=== PATIENT | female | born 1950 | race Caucasian/White ===

== ENCOUNTER 2020-03-16 15:50 | Outpatient (CLI) | payer MEDICARE, SELFPAY ==
--- NOTE | ~2020-03-16 | CT_ITS ---
EXAMINATION: CT abdomen pelvis w con EXAM DATE: 03/16/2020 17:34 INDICATION: Right lower quadrant pain. Anemia. TECHNIQUE: Spiral CT of the abdomen and pelvis was performed following intravenous injection of 100 m L Omnipaque 350. Axial, coronal and sagittal images were reviewed. The dose-length product (DLP) fo r this examination was 380.57 mGy-cm. The exposure was tailored according to patient size (auto mA e xposure control), and iterative reconstruction (ASIR) was used as additional dose reduction technique . There is no prior study for comparison. FINDINGS: The liver, spleen, adrenal glands and pancreas are unremarkable. Gallbladder is unremarkab le. No biliary obstruction. Portal and splenic veins are patent. Kidneys enhance symmetrically. T here is no hydronephrosis. The uterus is unremarkable. The bladder is unremarkable. There is no retroperitoneal or pelvic lymphadenopathy. There is mild to moderate scattered arteriosclerotic dis ease. The appendix is normal. The stomach and small bowel are unremarkable. There is moderate descending c olonic colonic diverticulosis. There is no adjacent inflammatory change to suggest diverticulitis. No free intraperitoneal gas. The heart is normal in size. There are no pericardial or pleural effu sions. The lung bases are unremarkable. There are no osteoblastic or osteolytic lesions identified. IMPRESSION: 1. Unremarkable CT abdomen pelvis exam. Reviewed, dictated and finalized at location A.
[2020-03-16 17:23] LABS: Estimated Glomerular Filt Rate > 60
== END 2020-03-16 15:51 | disposition home or self-care (01) ==
PROVIDERS: PCP Internal Medicine
DX: D50.9 Iron deficiency anemia, unspecified (principal)
CPT/HCPCS: 36415; 74177; Q9967

== ENCOUNTER 2020-04-29 05:23 | Outpatient (CLI) | payer MEDICARE, SELFPAY ==
--- NOTE | 2020-04-29 06:32 | SUR.OPER ---
Patient brought to GI Lab. Instructions for patient undergoing Capsule Endoscopy reviewed with patient. Consent form signed. Sensor array applied to patient's abdomen and connected to recorded. Patient swallowed capsule with 8 ozs of water infused with Simethicone. Patient instructed they may have clear liquids at 0820 this AM and eat or drink at 1020 this AM. Patient instructed to return to GI Lab at 1500 this afternoon for removal of recording device and to call [phone] or to return to the hospital if any nausea and vomiting or abdominal pain is experienced.
--- NOTE | 2020-04-29 11:12 | SUR.OPER ---
PATIENT CALLED GI LAB AT 1020 AM AND STATED THAT PILL IS IN TOILET AND STILL FLASHING. INSTRUCTED PATIENT TO FLUSH CAPSULE AND RETURN TO [facility] AND CALL WHEN IN [address]. EQUIPMENT REMOVED FROM PATIENT. PATIENT ASKED WHEN SHE WOULD KNOW THE FINDING, SHE WAS DIRECTED TO CALL DR. DOMINGUEZ'S OFFICE IF SHE HAS NOT HEARD ANYTHING AFTER 2 WEEKS.
== END 2020-04-29 05:24 | disposition home or self-care (01) ==
PROVIDERS: PCP Internal Medicine; Visit Provider Internal Medicine Gastroenterology
PROC: 0DJ07ZZ Inspection of Upper Intestinal Tract, Via Natural or Artificial Opening (ICD-10-PCS; CPT 91110; principal; 2020-04-29 07:00)
DX: D50.9 Iron deficiency anemia, unspecified (principal)
CPT/HCPCS: 91110

== ENCOUNTER → 2021-08-02 14:15 | Outpatient (CLI) | payer MEDICARE, SELFPAY ==
--- NOTE | ~2021-08-02 | CT_ITS ---
EXAMINATION: CT brain wo con DATE: 08/02/2021 14:30 INDICATION: Dizziness, paresis of extremities, essential tremors. TECHNIQUE: Computed tomography (CT) of the head was performed without intravenous contrast. The mA wa s adjusted according to patient size. Iterative reconstruction technique was employed. Exam dose: 59 9.57 mGy-cm total exam DLP. COMPARISON: None FINDINGS: There is bilateral cerebral volume loss involving preferentially the frontal lobes. No intracranial mass lesion or hemorrhage or cerebrovascular accident is detected. No midline shift o r mass effect effect. Normal ventricular size. There are bilateral carotid siphon internal carotid artery calcifications. There is nonspecific dimin ished attenuation of the cerebral white matter, likely due to chronic small vessel ischemic changes. No subdural or epidural hematoma is detected. Up to 3.2 cm polypoid soft tissue density is noted at the lower aspect right maxillary sinus. No skull fracture is detected. IMPRESSION: Cerebral atherosclerosis and chronic small vessel ischemic changes of cerebral white mat ter Bilateral cerebral volume loss preferentially involving the frontal lobes Reviewed, dictated and finalized at Location A. Reviewed, dictated and finalized at location A. IMPRESSION: Cerebral atherosclerosis and chronic small vessel ischemic changes of cerebral white matter Bilateral cerebral volume loss preferentially involving the frontal lobes
== END ==
PROVIDERS: PCP Internal Medicine; Visit Provider Internal Medicine
DX: M62.81 Muscle weakness (generalized) (principal); I67.2 Cerebral atherosclerosis
CPT/HCPCS: 70450

== ENCOUNTER 2023-02-21 00:22 | Day surgery (SDC) | payer MEDICARE, SELFPAY ==
[2023-02-09 14:32] VITALS: BMI 25.5
[2023-02-21 07:44] VITALS: BP 115/58; PULSE 82; RESP 20; TEMP 36.4; O2SAT 99
[2023-02-21] MEDS: LACTATED RINGERS 1,000 ML 150 ML IV CONT (07:56)
--- NOTE | 2023-02-21 07:59 | WPDHPUPDATE1 ---
History and Physical Update Update Date/Time: 02/21/23 07:59 History and Physical has been reviewed, including an updated exam of the patient. There are NO changes in the patient's condition. Risks, benefits, and alternatives have been discussed and questions answered. Patient agrees to proceed with procedure.
--- NOTE | 2023-02-21 08:37 | WPDANESEPPF ---
Anes - Initial Pre Proc Eval Procedure: Operation Date: 02/21/23 09:00 Proposed Procedures p Esophagogastroduodenoscopy - Iraj Ayoub MD Date/Time: 02/21/23 08:37 Surgeon: Iraj Ayoub MD Pre Op Diagnosis: GERD, MARYCHUY Patient Data Age: 72 Gender: F Height: 1.6 m Weight: 65.6 kg Last Vital Signs Temp 97.5 F L 02/21/23 07:44 Pulse 82 02/21/23 07:44 Resp 20 02/21/23 07:44 BP 115/58 L 02/21/23 07:44 Pulse Ox 99 02/21/23 07:44 O2 Del Method Room Air 02/21/23 07:44 Allergies Allergy/AdvReac Type Severity Reaction Status Date / Time milnacipran [From Savella] Allergy Intermediate Hallucinati Verified 02/21/23 07:42 ng niacin Allergy Intermediate facial Verified 02/21/23 07:42 [From Niaspan reaction Extended-Release] Home Medications Medication Instructions Recorded Confirmed Type alendronate 70 mg tablet 70 mg PO WEEKLY 02/06/23 02/09/23 History aspirin 81 mg tablet,delayed 81 mg PO DAILY 02/06/23 02/09/23 History release (Adult Aspirin Regimen) diltiazem HCl 120 mg capsule,24 120 mg PO DAILY 02/06/23 02/09/23 History hr,extended release gabapentin 300 mg capsule 300 mg PO TID 02/06/23 02/09/23 History loteprednol etabonate 0.38 % eye 1 drp EACH EYE BID PRN Dry Eye(S) 02/06/23 02/09/23 History gel drops (Lotemax SM) pantoprazole 40 mg tablet,delayed 40 mg PO QAM 02/06/23 02/09/23 History release sertraline 50 mg tablet 100 mg PO DAILY 02/06/23 02/09/23 History temazepam 15 mg capsule 15 mg PO QHS PRN Insomnia 02/06/23 02/09/23 History Good Sense Nasal [place] 1 spray EACH NARE DAILY PRN 02/09/23 02/09/23 History Congestion cholecalciferol (vitamin D3) 125 10,000 unit PO DAILY 02/09/23 02/09/23 History mcg (5,000 unit) tablet (Vitamin D3) cyanocobalamin (vitamin B-12) 2,000 mcg PO DAILY 02/09/23 02/09/23 History 1,000 mcg tablet (Vitamin B-12) hydrocodone 7.5 mg-acetaminophen 1 tablet PO Q6H PRN Pain 02/09/23 02/09/23 History 325 mg tablet isosorbide mononitrate 30 mg 30 mg PO DAILY 02/09/23 02/09/23 History tablet,extended release 24 hr loratadine 10 mg tablet (Allergy 10 mg PO DAILY 02/09/23 02/09/23 History Relief (loratadine)) lorazepam 1 mg tablet 1 mg PO DAILY PRN Anxiety 02/09/23 02/09/23 History magnesium oxide 400 mg PO DAILY 02/09/23 02/09/23 History multivitamin with minerals 1 tablet PO DAILY 02/09/23 02/09/23 History (Hair,Skin and Nails tablet) rosuvastatin 40 mg tablet 40 mg PO DAILY 02/09/23 02/09/23 History simethicone 125 mg tablet 125 mg PO DAILY 02/09/23 02/09/23 History Patient hx anesthesia problems: none Family hx anesthesia problems: none Results Review: All pre-operative results and documents have been reviewed as part of the pre-operative evaluation. [facility] Past Medical History Medical History (Updated 02/06/23 @ 14:56 by Hallie Kirk APRN) Coronary arteriosclerosis Essential hypertension Essential tremor Hx of colonic polyps MARYCHUY (iron deficiency anemia) Sebaceoma Tobacco abuse Surgical History Surgical History (Updated 02/06/23 @ 14:20 by Sydnee Macias MA) History of appendectomy Family History Family History (Updated 02/06/23 @ 14:19 by Sydnee Macias MA) Father Hypertension Cancer Mother Diabetes mellitus Hypertension Social History Social History (Updated 02/06/23 @ 14:20 by Sydnee Macias MA) Smoking packs per day: 1 Smoking cigarettes per day: 20.0 Years smoked: 60 Smoking pack-years: 60.00 Smoking status: Current every day smoker Tobacco type: cigarettes Second hand tobacco smoke exposure: Yes Alcohol intake: current Substance use: never Substance use type: does not use Living arrangements: with family Spiritual care concerns: No Anes - Eval Final PreProcedure Day of Procedure 02/21/23 08:37 Patient weight: normal Heart: regular rate and rhythm Lungs: clear to auscultation Airway: Mallampati scale cla
[2023-02-21 09:01] VITALS: BP 107/61; PULSE 66; RESP 19; O2SAT 100
[2023-02-21 09:11] VITALS: BP 122/71; PULSE 66; RESP 20; O2SAT 99
[2023-02-21 09:21] VITALS: BP 125/70; PULSE 66; RESP 16; O2SAT 100
== END 2023-02-21 09:29 | disposition home or self-care (01) ==
PROVIDERS: PCP Internal Medicine; Visit Provider Internal Medicine Gastroenterology
PROC: 0DJ08ZZ Inspection of Upper Intestinal Tract, Via Natural or Artificial Opening Endoscopic (ICD-10-PCS; CPT 43235; principal; 2023-02-21 09:00)
DX: D50.9 Iron deficiency anemia, unspecified (principal); K21.9 Gastro-esophageal reflux disease without esophagitis; I10 Essential (primary) hypertension; I25.10 Atherosclerotic heart disease of native coronary artery without angina pectoris; G25.0 Essential tremor; F17.210 Nicotine dependence, cigarettes, uncomplicated; Z79.82 Long term (current) use of aspirin
CPT/HCPCS: 43239; 87081; 88305; J7120

== ENCOUNTER 2023-07-27 03:21 | Day surgery (SDC) | payer MEDICARE, SELFPAY ==
[2023-07-13 11:34] VITALS: BMI 25.5
[2023-07-27 11:07] VITALS: BP 163/69; PULSE 82; RESP 16; TEMP 36.7; O2SAT 97
[2023-07-27] MEDS: LACTATED RINGERS 1,000 ML 150 ML IV CONT (11:16)
--- NOTE | 2023-07-27 11:26 | PM.HPGS ---
History of Present Illness History of Present Illness Consent: Risks, benefits, and alternatives have been discussed and questions answered. Patient agrees to proceed with procedure. Chief complaint: Iron Deficiency Anemia Narrative: Mirtha Leavitt is a 72 year old female Referred for colonoscopy. Patient reports her bowel habits are normal. She denies any obvious blood in her stools. She states she had a home stool test that was negative for blood. These results are not available for review. Patient has had anemia for some time felt to be iron deficient. Apparently has been on iron replacement at home with no significant improvement in her hemoglobin. Repeat CBC several months ago revealed microcytic anemia to persists. Patient has a distant history of hyperplastic polyp. I can find results for colonoscopy an EGD 2019 performed to [facility] that were essentially unremarkable. An EGD performed by our service in 2022 was unremarkable. Patient has had previous workup by Dr. Fowler including colonoscopy and small-bowel follow-through that were unremarkable. Patient is not yet seen hematology. Referred today for a colonoscopy. Review of Systems Review of Systems: Review of systems noncontributory. [facility] Past Medical History Medical History (Updated 02/06/23 @ 14:56 by Hallie Kirk, MON[place]) Coronary arteriosclerosis Essential hypertension Essential tremor Hx of colonic polyps MARYCHUY (iron deficiency anemia) Sebaceoma Tobacco abuse Surgical History Surgical History (Updated 02/06/23 @ 14:20 by Sydnee Macias MA) History of appendectomy Family History Family History (Updated 02/06/23 @ 14:19 by Sydnee Macias MA) Father Hypertension Cancer Mother Diabetes mellitus Hypertension Social History Social History (Updated 02/06/23 @ 14:20 by Sydnee Macias MA) Smoking packs per day: 1 Smoking cigarettes per day: 20.0 Years smoked: 58 Smoking pack-years: 58.00 Smoking status: Current every day smoker Tobacco type: cigarettes Second hand tobacco smoke exposure: Yes Alcohol intake: current Alcohol use details: social Substance use: never Substance use type: does not use Living arrangements: with family Spiritual care concerns: No Meds Home Medications and Allergies Home Medications Medication Instructions Recorded Confirmed Type alendronate 70 mg tablet 70 mg PO WEEKLY 02/06/23 07/13/23 History aspirin 81 mg tablet,delayed 81 mg PO DAILY 02/06/23 07/13/23 History release (Adult Aspirin Regimen) diltiazem HCl 120 mg capsule,24 120 mg PO DAILY 02/06/23 07/13/23 History hr,extended release gabapentin 300 mg capsule 300 mg PO TID 02/06/23 07/13/23 History loteprednol etabonate 0.38 % eye 1 drp EACH EYE BID PRN Dry Eye(S) 02/06/23 07/13/23 History gel drops (Lotemax SM) pantoprazole 40 mg tablet,delayed 40 mg PO QAM 02/06/23 07/13/23 History release sertraline 50 mg tablet 100 mg PO DAILY 02/06/23 07/13/23 History temazepam 15 mg capsule 15 mg PO QHS PRN Insomnia 02/06/23 07/13/23 History cholecalciferol (vitamin D3) 125 10,000 unit PO DAILY 02/09/23 07/13/23 History mcg (5,000 unit) tablet (Vitamin D3) cyanocobalamin (vitamin B-12) 1,000 mcg PO DAILY 02/09/23 07/13/23 History 1,000 mcg tablet (Vitamin B-12) isosorbide mononitrate 30 mg 30 mg PO DAILY 02/09/23 07/13/23 History tablet,extended release 24 hr loratadine 10 mg tablet (Allergy 10 mg PO DAILY PRN Allergy Symptoms 02/09/23 07/13/23 History Relief (loratadine)) lorazepam 1 mg tablet 1 mg PO DAILY PRN Anxiety 02/09/23 07/13/23 History magnesium oxide 400 mg PO DAILY 02/09/23 07/13/23 History rosuvastatin 40 mg tablet 40 mg PO DAILY 02/09/23 07/13/23 History biotin 5,000 mcg chewable tablet 5,000 mcg PO DAILY 07/13/23 07/13/23 History ferrous sulfate 325 mg (65 mg 325 mg PO DAILY 07/13/23 07/13/23 History iron) tablet (Iron (ferrous sulfate)) fl
[2023-07-27 11:39] LABS: Basophils Absolute Auto 0.1 K/mm3 (0.0-0.1); Basophils Percent Auto 1.4 % (0.2-1.2); Eosinophils Absolute Auto 0.1 K/mm3 (0-0.3); Eosinophils Percent Auto 1.2 % (0-4.4); Hematocrit 41.9 % (37.0-47.0); Hemoglobin 13.6 g/dL (12.0-15.0); Immature Granulocyte Absolute 0.02 K/mm3 (0.00-0.031); Immature Granulocyte Percent A 0.3 % (0-0.5); Lymphocytes Percent Auto 31.6 % (18.3-44.2); Mean Corpuscular HGB Conc 32.5 g/dl (32-36); Mean Corpuscular Hemoglobin 29.3 pg (26-34); Mean Corpuscular Volume 90.3 fl (80-100); Mean Platelet Volume 9.4 fl (7.4-10.4); Monocytes Absolute Auto 0.6 K/mm3 (0.1-0.6); Neutrophils Absolute Auto 3.8 K/mm3 (1.3-6.7); Neutrophils Percent Auto 56.5 % (45.5-73.1); Platelet Count Result 269 k/mm3 (150-375); Red Blood Count 4.64 M/mm3 (4.2-5.4); White Blood Count 6.6 K/mm3 (4.5-10.0)
--- NOTE | 2023-07-27 12:06 | WPDANESEPPF ---
Anes - Initial Pre Proc Eval Procedure: Operation Date: 07/27/23 12:30 Proposed Procedures p Colonoscopy - Iraj Ayoub MD Date/Time: 07/27/23 12:06 Surgeon: Iraj Ayoub MD Pre Op Diagnosis: Iron Deficiency Anemia Patient Data Age: 72 Gender: F Height: 1.6 m Weight: 64 kg Last Vital Signs Temp 98.1 F 07/27/23 11:07 Pulse 82 07/27/23 11:07 Resp 16 07/27/23 11:07 BP 163/69 H 07/27/23 11:07 Pulse Ox 97 07/27/23 11:07 O2 Del Method Room Air 07/27/23 11:07 Allergies Allergy/AdvReac Type Severity Reaction Status Date / Time milnacipran [From Savella] Allergy Intermediate Hallucinati Verified 07/27/23 11:06 ng niacin Allergy Intermediate facial Verified 07/27/23 11:06 [From Niaspan reaction Extended-Release] Home Medications Medication Instructions Recorded Confirmed Type alendronate 70 mg tablet 70 mg PO WEEKLY 02/06/23 07/13/23 History aspirin 81 mg tablet,delayed 81 mg PO DAILY 02/06/23 07/13/23 History release (Adult Aspirin Regimen) diltiazem HCl 120 mg capsule,24 120 mg PO DAILY 02/06/23 07/13/23 History hr,extended release gabapentin 300 mg capsule 300 mg PO TID 02/06/23 07/13/23 History loteprednol etabonate 0.38 % eye 1 drp EACH EYE BID PRN Dry Eye(S) 02/06/23 07/13/23 History gel drops (Lotemax SM) pantoprazole 40 mg tablet,delayed 40 mg PO QAM 02/06/23 07/13/23 History release sertraline 50 mg tablet 100 mg PO DAILY 02/06/23 07/13/23 History temazepam 15 mg capsule 15 mg PO QHS PRN Insomnia 02/06/23 07/13/23 History cholecalciferol (vitamin D3) 125 10,000 unit PO DAILY 02/09/23 07/13/23 History mcg (5,000 unit) tablet (Vitamin D3) cyanocobalamin (vitamin B-12) 1,000 mcg PO DAILY 02/09/23 07/13/23 History 1,000 mcg tablet (Vitamin B-12) isosorbide mononitrate 30 mg 30 mg PO DAILY 02/09/23 07/13/23 History tablet,extended release 24 hr loratadine 10 mg tablet (Allergy 10 mg PO DAILY PRN Allergy Symptoms 02/09/23 07/13/23 History Relief (loratadine)) lorazepam 1 mg tablet 1 mg PO DAILY PRN Anxiety 02/09/23 07/13/23 History magnesium oxide 400 mg PO DAILY 02/09/23 07/13/23 History rosuvastatin 40 mg tablet 40 mg PO DAILY 02/09/23 07/13/23 History biotin 5,000 mcg chewable tablet 5,000 mcg PO DAILY 07/13/23 07/13/23 History ferrous sulfate 325 mg (65 mg 325 mg PO DAILY 07/13/23 07/13/23 History iron) tablet (Iron (ferrous sulfate)) fluticasone propionate 50 1 spray intranasal DAILY PRN 07/13/23 07/13/23 History mcg/actuation nasal Allergy Symptoms spray,suspension morphine 15 mg immediate release 15 mg PO Q4H PRN Pain 07/13/23 07/13/23 History tablet Laboratory Tests 07/27/23 11:33 WBC Pending RBC Pending Hgb Pending Hct Pending MCV Pending MCH Pending MCHC Pending RDW Pending Plt Count Pending MPV Pending Immature Gran % (Auto) Pending Neut % (Auto) Pending Lymph % (Auto) Pending [place] % (Auto) Pending Eos % (Auto) Pending Baso % (Auto) Pending Lymph # (Auto) Pending [place] # (Auto) Pending Eos # (Auto) Pending Baso # (Auto) Pending Abs Immat Gran (auto) Pending Absolute Neuts (auto) Pending Absolute Nucleated RBC Pending Nucleated RBC % Pending Iron Pending TIBC Pending % Saturation Pending Ferritin Pending Patient hx anesthesia problems: none Family hx anesthesia problems: none Results Review: All pre-operative results and documents have been reviewed as part of the pre-operative evaluation. [facility] Past Medical History Medical History (Updated 02/06/23 @ 14:56 by Hallie Kirk, [employer]) Coronary arteriosclerosis Essential hypertension Essential tremor Hx of colonic polyps MARYCHUY (iron deficiency anemia) Sebaceoma Tobacco abuse Surgical History Surgical History (Updated 02/06/23 @ 14:20 by Sydnee Macias
[2023-07-27 12:16] LABS: Iron 83 ug/dL (37-170)
[2023-07-27 12:28] LABS: Percent Iron Saturation 19 % (20-50)
[2023-07-27 12:41] LABS: Anisocytosis 1+ (NORMAL); Hypochromasia 1+ (NORMAL); Platelet Estimate Adequate (Adequate); Schistocytes None Seen (NORMAL)
[2023-07-27 12:51] LABS: Ferritin 9.55 ng/mL (11.1-264)
[2023-07-27 13:01] VITALS: BP 138/76; PULSE 78; RESP 18; O2SAT 99
[2023-07-27 13:11] VITALS: BP 133/70; PULSE 65; RESP 20; O2SAT 97
[2023-07-27 13:21] VITALS: BP 160/70; PULSE 69; RESP 19; O2SAT 100
--- NOTE | 2023-07-28 07:03 | SUR.PHASEII ---
Patient was sent home with supplies for mail in hemoccult stool test as ordered.
== END 2023-07-27 13:36 | disposition home or self-care (01) ==
PROVIDERS: PCP Internal Medicine; Visit Provider Internal Medicine Gastroenterology
PROC: 0DJD8ZZ Inspection of Lower Intestinal Tract, Via Natural or Artificial Opening Endoscopic (ICD-10-PCS; CPT 45378; principal; 2023-07-27 12:30)
DX: D50.9 Iron deficiency anemia, unspecified (principal); K64.8 Other hemorrhoids; K57.30 Diverticulosis of large intestine without perforation or abscess without bleeding; I10 Essential (primary) hypertension; I25.10 Atherosclerotic heart disease of native coronary artery without angina pectoris; G25.0 Essential tremor; Z86.010 Personal history of colon polyps; F17.210 Nicotine dependence, cigarettes, uncomplicated; Z79.891 Long term (current) use of opiate analgesic; Z79.82 Long term (current) use of aspirin
CPT/HCPCS: 45378; 36415; 82728; 83540; 83550; 85025; J2704; J7120

== ENCOUNTER 2023-08-09 09:23 | Outpatient (NON) | payer MEDICARE, SELFPAY ==
[2023-08-09 10:21] LABS: IFOB Positive Control Positive; Immunochemical Fecal Occult Bl Negative (N)
== END 2023-08-09 09:24 | disposition home or self-care (01) ==
LOC: ANHLAB 09:23
PROVIDERS: PCP Internal Medicine; Visit Provider Nurse Practitioner
DX: D50.9 Iron deficiency anemia, unspecified (principal); K21.9 Gastro-esophageal reflux disease without esophagitis; Z72.0 Tobacco use; Z86.010 Personal history of colon polyps
CPT/HCPCS: 82274